=== PATIENT | female | born 1940 | race Caucasian/White ===

== ENCOUNTER 2017-10-18 09:12 | Emergency (ER) | payer MEDICARE, OTHER ==
[~2017-10-18] VITALS: Ht 160 cm; Wt 79.4 kg
[2017-10-18] MEDS ORDERED: HYDR-2758 PO (09:57)
[2017-10-18] MEDS ORDERED: CYCL5TAB PO (09:57)
--- NOTE | 2017-10-18 09:58 | PHYS DOC ---
Past History Past Medical History: Diabetes, Hypertension Past Surgical History: No Surgical History Alcohol Use: None Drug Use: None Adult General Chief Complaint Chief Complaint: BACK PAIN OR INJURY HPI HPI 87-year-old female with a history of high blood pressure high cholesterol and hypothyroidism presenting to the emergency department today with right lower back pain and hip pain. She reports having a history of trochanteric bursitis and has been undergoing injections of corticosteroids. She recently has been having right trochanteric bursitis for which she went to the doctor who placed a steroid injection a few days ago. Since this event, she has had worsening low back pain and right-sided buttocks pain. She denies any rashes fevers or warmth in the area of injection. Location right hip. Right low back. Duration intermittent. Worse with walking. No alleviating or exacerbating factors. The patient denies having perineal paresthesias urinary retention or weakness or numbness in her lower extremities. Review of systems is negative for numbness tingling fevers chills trauma to the hip back or otherwise. All other review of systems is negative unless otherwise noted in history of present illness. ED course: 77-year-old female presenting to the emergency department today with right-sided low back pain and hip pain. She denies any trauma. Otherwise her vital signs upon triage show her to be afebrile with a normal heart rate. On examination the patient has pain along the paraspinal musculature of low back without any step-offs abrasions ecchymosis or lacerations. No fluctuance of the low back. Nontender midline. No erythema the right hip. Not warm to touch. No pain with passive range of motion of the hip. She does have muscle spasms through back as I rotate her hip. Negative straight leg test. Palpable pulse distally with 2 second cap refill with normal sensory and motor function of the right lower foot. The patient was given intramuscular hydromorphone and oral cyclobenzaprine. On reexamination she is feeling better. She was subsequent discharged home with oral ibuprofen and low-dose short-term opioids. I also referred her to physical therapist for rehabilitation. The patient was then discharged home in stable condition to follow up with their primary care physician over the next 2-3 days. They were to return if their symptoms worsened or if they were concerned for any reason. [id number] discharge instructions and return precautions were given. Patient's questions were answered to their satisfaction. Patient is comfortable plan. Review of Systems Review of Systems SEE ABOVE. Current Medications Current Medications Current Medications Medications (Trade) Dose Ordered Sig/Omid Start Time Stop Time Status Last Admin Dose Admin Cyclobenzaprine HCl (Flexeril) 10 mg 1X ONCE 10/18/17 09:45 10/18/17 09:46 UNV Hydromorphone HCl (Dilaudid) 0.5 mg 1X ONCE 10/18/17 09:45 10/18/17 09:46 UNV Allergies Allergies Allergies Coded Allergies Type Severity Reaction Last Updated Verified No Known Drug Allergies 12/18/16 No Physical Exam Physical Exam SEE ABOVE Constitutional: Well developed, well nourished, no acute distress, non-toxic appearance. [] HENT: Normocephalic, atraumatic, bilateral external ears normal, oropharynx moist, no oral exudates, nose normal. [] Eyes: PERRLA, EOMI, conjunctiva normal, no discharge. [] Neck: Normal range of motion, no tenderness, supple, no stridor. [] Cardiovascular:Heart rate regular rhythm, no murmur [] Lungs & Thorax: Bilateral breath sounds clear to auscultation [] Abdomen: Bowel sounds normal, soft, no tenderness, no masses, no pulsatile masses. [] Skin: Warm, dry, no erythema, no rash. [] Back: SEE ABOVE Extremities: SEE ABOVE Neurologic: Alert and oriented X 3, normal motor function, normal sensory function, no focal deficits noted. [] Psychologic: Affect normal, judgement normal, mood normal. [] Current Patient Data Vital Signs Vital Signs Date Time Temp Pulse Resp B/P (MAP) Pulse Ox O2 Delivery O2 Flow Rate FiO2 10/18/17 09:12 98.6 92 20 97 Room Air EKG EKG [] Radiology/Procedures Radiology/Procedures [] Course & Med Decision Making Course & Med Decision Making Pertinent Labs and Imaging studies reviewed. (See chart for details) [] Dragon Disclaimer Dragon Disclaimer This electronic medical record was generated, in whole or in part, using a voice recognition dictation system. Departure Departure: Impression: Primary Impression: Low back pain Disposition: 01 HOME, SELF-CARE Condition: STABLE Referrals: SAYDA WILLIAMSON MD (PCP) Patient Instructions: Back Exercises, [id number], Back Pain, Adult, Easy-to- Read Additional Instructions: Thank you for allowing us to participate in your care today. Followup with your primary care physician in 3 days if your symptoms do not improve. Call your Primary Doctor tomorrow and inform them of your visit today. If you do not have a primary care provider you can ask for a list of our primary care providers. Return to the emergency department you have any new or concerning findings. This should be evaluated by the primary care physician and any necessary consulting services for continued management within a few days after discharge. Return to emergency room if you have any new or concerning symptoms including but not limited to fever, chills, nausea, vomiting, intractable pain, any new rashes, chest pain, shortness of air, uncontrolled bleeding, difficulty breathing, and/or vision loss. You may have been prescribed medication that can change in your level of thinking and ability to operate machinery. These medications include hydrocodone and Ativan. Also, Benadryl has been known to do this as well. Be sure to check with your pharmacist and ask if the medications you've prescribed can affect your level of consciousness. I recommend not operating heavy machinery or driving while on medication such as these. Scripts Hydrocodone Bit/Acetaminophen (HYDROCODONE-APAP 5-325 ) 1 Each Tablet 1 TAB PO PRN Q6HRS Y for PAIN, #10 TAB 0 Refills Prov: AXEL PERSAUD MD 10/18/17 Cyclobenzaprine Hcl (CYCLOBENZAPRINE HCL) 5 Mg Tablet 1 TAB PO QHS, #7 TAB Prov: AXEL PERSAUD MD 10/18/17 AXEL PERSAUD MD Oct 18, 2017 09:57
[2017-10-18] MEDS ORDERED: CYCLOBENZAPRINE 10 MG TABLET. PO ONE (10:15)
[2017-10-18] MEDS ORDERED: HYDROmorphone PF 1 MG/ML DISP.SYRIN IM ONE (10:15)
[2017-10-18 10:43] VITALS: BP 139/57
== END 2017-10-18 10:44 | disposition home or self-care (01) ==
LOC: ER 09:12
DX: M54.5 Low back pain (principal); M25.551 Pain in right hip; E11.9 Type 2 diabetes mellitus without complications; E03.9 Hypothyroidism, unspecified; E78.00 Pure hypercholesterolemia, unspecified
CPT/HCPCS: 96372; 99283; J1170

== ENCOUNTER 2017-11-01 21:44 | Emergency (ER) | payer MEDICARE, OTHER ==
[~2017-11-01] VITALS: Ht 160 cm; Wt 79.4 kg
[~2017-11-01 21:44] MED LIST: CYCL5TAB PO; HYDR-2758 PO
[2017-11-01] MEDS ORDERED: MORPHINE SULFATE 4 MG/ML DISP.SYRIN. IV/SQ PRN (22:45)
[2017-11-01 22:56] LABS: BASO % 0 % (0-3); EOS % 0 % (0-3); HEMATOCRIT 36.4 % (36.0-47.0); HEMOGLOBIN 12.2 g/dL (12.0-15.5); LYMPH # 0.5 x10^3/uL (1.0-4.8); LYMPH % 4 % (24-48); MEAN CORPUSCULAR HEMOGLOBIN 30 pg (25-35); MEAN CORPUSCULAR HGB CONC 34 g/dL (31-37); MEAN CORPUSCULAR VOLUME 89 fL (79-100); MONO # 0.8 x10^3/uL (0.0-1.1); MONO % 7 % (0-9); NEUT # 9.9 x10^3uL (1.8-7.7); NEUT % 88 % (31-73); PLATELET COUNT 304 x10^3/uL (140-400); RED BLOOD COUNT 4.08 x10^6/uL (3.50-5.40); RED CELL DISTRIBUTION WIDTH 13.8 % (11.5-14.5); WHITE BLOOD COUNT 11.3 x10^3/uL (4.0-11.0)
[2017-11-01] MEDS ORDERED: ONDANSETRON PF 4 MG/2 ML VIAL. IV ONE (23:00)
[2017-11-01] MEDS ORDERED: IV NORMAL SALINE 1,000ML 1,000 ML IV SCH (23:00)
[2017-11-01 23:17] LABS: CALCIUM 9.5 mg/dL (8.5-10.1); GFR 10.9; POTASSIUM 3.7 mmol/L (3.5-5.1); TOTAL BILIRUBIN 0.3 mg/dL (0.2-1.0); TOTAL PROTEIN 8.2 g/dL (6.4-8.2)
--- NOTE | 2017-11-02 00:11 | EKG ---
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
[2017-11-02] MEDS ORDERED: IV NORMAL SALINE 1,000ML 1,000 ML IV SCH (00:30)
--- NOTE | 2017-11-02 00:39 | RAD ---
INDICATION: Right flank pain, abd pain, nausea and vomiting. No prior exams for comparison COMPARISON: None. TECHNIQUE: Axial CT images obtained through the abdomen and pelvis without contrast. Limited assessment of solid organ structures and vasculature secondary to lack of intravenous contrast. One or more of the following individualized dose reduction techniques were utilized for this examination: 1. Automated exposure control; 2. Adjustment of the mA and/or kV according to patient size; 3. Use of iterative reconstruction technique. FINDINGS: Calcified granuloma right lower lung. Coronary artery calcific atherosclerosis. Small hiatal hernia is suspected. Trace pericardial fluid. Moderate calcific atherosclerosis. Moderate fat-containing left inguinal hernia. No intrahepatic bile duct dilation. Suspected high density foci within the gallbladder. No peripancreatic edema. Splenic calcified granulomas. No left-sided hydronephrosis. Urinary bladder is partially distended. Calcifications the bilateral kidneys. Could be from nonobstructive stones. Moderate amount stool is seen in the rectal region. Colonic diverticulosis. No definite periappendiceal inflammation. There is some high density material within the appendix. No dilated loops of bowel to suggest obstruction. Small fat-containing umbilical hernia. Cortical step-off is suspected at the sacrum bilaterally with mixed regions of sclerosis and lucency. Degenerative changes throughout spine. Lucency through the superior endplate of L5 posteriorly. IMPRESSION: Findings are concerning for sacral fracture bilaterally. There is also a subtle lucency through the superior endplate of L5. This one is more questionable but additional nondisplaced fracture is possible if there is pain in the area. The appendix does not appear grossly inflamed but there is some high density material within the lumen which could be from high density stool or appendicolith. No evidence of hydronephrosis or bowel obstruction. Small amount of high density material seen within the gallbladder which could be from sludge or stones. Gallbladder is somewhat distended and if more clarification is desired ultrasound could further evaluate Electronically signed by: Venancio Shay MD (11/02/2017 12:36 AM) [facility]
--- NOTE | 2017-11-02 00:46 | PHYS DOC ---
General Chief Complaint: ABDOMINAL PAIN Stated Complaint: VOMITING,BACK PROBLEM,CONSTIPATION X8DYS Time Seen by MD: 22:39 Source: patient, family Exam Limitations: clinical condition Problems: History of Present Illness Initial Comments Patient is a 77-year-old female brought to the ED by her daughter with vomiting , right lower quadrant abdominal pain, back pain, constipation and confusion. Patient was seen here October 18 complaining of right sided low back and right hip pain presumably from prior diagnosis of trochanteric bursitis. She had some steroid injections which have helped previously however was having what she thought was an exacerbation of pain. Her physical exam was consistent with her reported history and she was discharged home with physical therapy referral and muscle relaxants after symptomatic control was achieved in the emergency department. There was no report of a fall and the patient still denies any recent falls or other trauma, she states she did have a "bad fall" forward to her hands and right knee last December. Patient saw her primary care physician Dr. Williamson on October 21, at that time she was prescribed Lortab and has been taking that since to control her symptoms. She's not been taking any stool softeners or increasing her fluids and has not had a bowel movement for the past 8 days. She hasn't been taking much in by mouth and her daughter states that she's lost about 10 pounds during this time. She's had progressive difficulty with ambulation due to discomfort. Today her daughter visited her and found her to be confused and "not acting right" and upon finding out the patient has been vomiting today decided to bring her in for further evaluation. In the emergency department the patient complains of vomiting, right lower quadrant abdominal and right sided back pain, she has a tremor which family states is new and her appearance is profoundly dehydrated and pale. She began vomiting earlier today is very weak and has great difficulty moving with weakness and pain. She's also had decreased appetite but denies any fever chills or diaphoresis, she does complain that she just pretty much hurts all over. Patient lives alone and does not appear to be able to care for herself at home alone at this time. ED vitals: 98, 87, 20, 139/66, 94% room air Timing/Duration: other Severity: severe Modifying Factors: improves with medication, worse with movement Associated Symptoms: loss of appetite, malaise, nausea/vomiting, weakness, other Allergies: Coded Allergies: No Known Drug Allergies (Unverified , 12/18/16) Past Medical History Medical History: other (diabetes, hypertension, hypothyroidism, chronic trochanteric bursitis) Surgical History: other (she reportedly had a heart catheterization 3 and half years ago which showed some disease no treatment was indicated at that time) Social History Smoker: non-smoker Alcohol: none Drugs: none Review of Systems Constitutional: denies chills, denies diaphoresis, denies fever, malaise, weakness Respiratory: denies cough, orthopnea, denies shortness of breath, denies wheezing Cardiovascular: denies chest pain, denies palpitations, denies syncope Gastrointestinal: denies abdominal pain, constipation, denies diarrhea, nausea , vomiting Genitourinary: see HPI, denies dysuria, denies frequency, denies hematuria, other (decreased urination) Musculoskeletal: see HPI, denies neck pain Psychiatric/Neurological: see HPI, denies headache, denies numbness, denies paresthesia, denies pre-existing deficit, denies seizure, tremors, weakness Hematologic/Lymphatic: denies blood clots, denies easy bleeding, denies easy bruising Physical Exam General Appearance: moderate distress (profoundly dehydrated, weak, alert and oriented but confused at times) Eyes: bilateral eye normal inspection, bilateral eye PERRL, bilateral eye EOMI Ear, Nose, Throat: hearing grossly normal, normal ENT inspection, normal pharynx (very dry mucous membranes) Neck: non-tender, full range of motion, supple Respiratory: chest non-tender, no respiratory distress, other (course breath sounds bilaterally) Cardiovascular: normal peripheral pulses, regular rate, rhythm Gastrointestinal: soft (mild right lower quadrant tenderness without rebound guarding or palpable mass, bowel sounds diminished), no organomegaly Rectal: deferred Back: CVA tenderness (R), other (right sided lower lumbar tenderness as well as some lower midline tenderness) Extremities: pelvis stable, other (2+ nonpitting lower extremity edema bilaterally, range of motion not tested due to discomfort) Neurologic/Psychiatric: 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 Chest AP: Right lower lobe calcified nodule otherwise lung mccauley and cardiac silhouette appeared to be normal. Interpreted by me. Pertinent labs: WBC 11.3, d-dimer 4.49, BUNs 145, creatinine 4.0, glucose 174, amylase 155, lipase 680 PATIENT: GERMAIN QUINTANILLA ACCOUNT: [id number] : 1940 LOCATION: ER AGE: 77 SEX: F EXAM STATUS: REG ER ORD. PHYSICIAN: HEMAL LUGO DO REASON: R flank/abd pain, n/v PROCEDURE: CT ABDOMEN PELVIS WO CONTRAST INDICATION: Right flank pain, abd pain, nausea and vomiting. No prior exams for comparison COMPARISON: None. TECHNIQUE: Axial CT images obtained through the abdomen and pelvis without contrast. Limited assessment of solid organ structures and vasculature secondary to lack of intravenous contrast. One or more of the following individualized dose reduction techniques were utilized for this examination: 1. Automated exposure control; 2. Adjustment of the mA and/or kV according to patient size; 3. Use of iterative reconstruction technique. FINDINGS: Calcified granuloma right lower lung. Coronary artery calcific atherosclerosis. Small hiatal hernia is suspected. Trace pericardial fluid. Moderate calcific atherosclerosis. Moderate fat-containing left inguinal hernia. No intrahepatic bile duct dilation. Suspected high density foci within the gallbladder. No peripancreatic edema. Splenic calcified granulomas. No left-sided hydronephrosis. Urinary bladder is partially distended. Calcifications the bilateral kidneys. Could be from nonobstructive stones. Moderate amount stool is seen in the rectal region. Colonic diverticulosis. No definite periappendiceal inflammation. There is some high density material within the appendix. No dilated loops of bowel to suggest obstruction. Small fat-containing umbilical hernia. Cortical step-off is suspected at the sacrum bilaterally with mixed regions of sclerosis and lucency. Degenerative changes throughout spine. Lucency through the superior endplate of L5 posteriorly. IMPRESSION: Findings are concerning for sacral fracture bilaterally. There is also a subtle lucency through the superior endplate of L5. This one is more questionable but additional nondisplaced fracture is possible if there is pain in the area. The appendix does not appear grossly inflamed but there is some high density material within the lumen which could be from high density stool or appendicolith. No evidence of hydronephrosis or bowel obstruction. Small amount of high density material seen within the gallbladder which could be from sludge or stones. Gallbladder is somewhat distended and if more clarification is desired ultrasound could further evaluate Electronically signed by: Hank Shay MD (11/02/2017 12:36 AM) [facility] DICTATED AND SIGNED BY: HANK SHAY MD DATE: 11/02/1720 CC: SAYDA WILLIAMSON MD; HEMAL LUGO DO ~ Impressions: Bilateral sacral fractures L5 superior endplate fracture Gallbladder distention with sludge and elevated amylase and lipase Right lower quadrant pain with appendicolith and high density material within the appendix Opiate associated constipation Profound hypovolemia JUAN Patient will likely need orthopedics evaluation for fractures in the absence of trauma. Patient will also possibly need GI or general surgical evaluation of her gallbladder and appendix. As these resources are not available at [facility] the decision is made to transfer to [facility] for further evaluation and treatment. The patient and her family are agreeable and hospitalist has been paged. The patient's daughter who is an RN to a physician requested and was provided copies of labs and imaging studies. 0122: I discussed the patient with insect control inspector hospitalist at [facility] Dr. Zepeda who accepts MedSurg admission, requests that we continue IV fluids and give antibiotics. 0136: Patient tremor has nearly resolved with IV hydration, her color has improved as has her mentation. Currently her second liter IV bolus as running after which normal saline at 200 mL an hour will be initiated. Patient also received Rocephin and Zofran IV in the emergency department. Departure Time of Disposition: 01:45 Disposition: 02 XFER SHT-TRM HOSP Condition: STABLE Additional Instructions: EMS transfer to [facility] for MedSurg admission Dr. Zepeda is accepting physician. HEMAL LUGO DO Nov 02, 2017 00:46
[2017-11-02 01:01] LABS: BACTERIA,URINE 0 /HPF (0-FEW); BILIRUBIN,URINE NEG (NEG); CLARITY,URINE CLEAR; COLOR,URINE YELLOW; GLUCOSE,URINE NEG (NEG); NITRITE,URINE NEG (NEG); RBC,URINE RARE /HPF (0-2); SQUAMOUS EPITHELIAL CELL,UR FEW /LPF; UROBILINOGEN,URINE 0.2 mg/dL (0.2 mg/dL); WBC,URINE OCC /HPF (0-4)
[2017-11-02 01:08] VITALS: BP 128/54
[2017-11-02] MEDS ORDERED: cefTRIAXone SODIUM 1 GM VIAL IV ONE (01:31)
[2017-11-02] MEDS ORDERED: IV NORMAL SALINE 50ML 50 ML ONE (01:31)
--- NOTE | 2017-11-02 08:12 | RAD ---
AP chest. History: Dyspnea AP view was taken of the chest. There is a granuloma on the right. Lungs are clear. Heart is normal in size without heart failure. There is no effusion. Impression: 1. No acute chest disease.
== END 2017-11-02 02:23 | disposition short-term general hospital (02) ==
LOC: ER 21:44
DX: S32.19XA Other fracture of sacrum, initial encounter for closed fracture (principal); S32.058A Other fracture of fifth lumbar vertebra, initial encounter for closed fracture; K38.1 Appendicular concretions; N32.89 Other specified disorders of bladder; S37.002A Unspecified injury of left kidney, initial encounter; S37.001A Unspecified injury of right kidney, initial encounter; E86.1 Hypovolemia; K59.03 Drug induced constipation; I10 Essential (primary) hypertension; T40.605A Adverse effect of unspecified narcotics, initial encounter; R74.8 Abnormal levels of other serum enzymes; E03.9 Hypothyroidism, unspecified; E11.9 Type 2 diabetes mellitus without complications; X58.XXXA Exposure to other specified factors, initial encounter; Y93.89 Activity, other specified; Y99.8 Other external cause status; Y92.89 Other specified places as the place of occurrence of the external cause
CPT/HCPCS: 36415; 51702; 71010; 74176; 80053; 81001; 82150; 82550; 82947; 83605; 83690; 83880; 84484; 85025; 85379; 86140; 87040; 87086; 93005; 96361; 96374; 96375; 99285; J0696; J2270; J2405; J7030

== ENCOUNTER 2017-12-09 06:09 | Emergency (ER) | payer MEDICARE, OTHER ==
[~2017-12-09] VITALS: Ht 160 cm; Wt 73.5 kg
[2017-12-09 06:45] VITALS: BP 138/67
--- NOTE | 2017-12-09 07:13 | PHYS DOC ---
Past History Past Medical History: Diabetes, Hypertension Past Surgical History: No Surgical History Alcohol Use: None Drug Use: None Adult General Chief Complaint Chief Complaint: hives HPI HPI Patient is a 77 year old F who presents with hives on her lower extremity and right trunk that started last night. Joint states that she initially put heat on this rash which worsened her symptoms. She put cold compresses on to follow which seemed to improve her symptoms. She states that her symptoms are gradually improving. She denies shortness of breath. She denies any problems related to her airway. She has no other associated symptoms. She has no other exacerbating or alleviating factors. She has not taken new medications. She did have a respiratory infection that resolved approximately one week ago. Review of Systems Review of Systems Constitutional: Denies fever or chills [] Eyes: Denies change in visual acuity, redness, or eye pain [] HENT: Denies nasal congestion or sore throat [] Respiratory: Denies cough or shortness of breath [] Cardiovascular: No additional information not addressed in HPI [] GI: Denies abdominal pain, nausea, vomiting, bloody stools or diarrhea [] : Denies dysuria or hematuria [] Musculoskeletal: Denies back pain or joint pain [] Integument: Negative except history of present illness Neurologic: Denies headache, focal weakness or sensory changes [] Endocrine: Denies polyuria or polydipsia [] All other systems were reviewed and found to be within normal limits, except as documented in this note. Family History Family History No pertinent family medical history was reported Current Medications Current Medications Current medications reviewed and include quinapril Allergies Allergies Allergies Coded Allergies Type Severity Reaction Last Updated Verified No Known Drug Allergies 12/18/16 No Physical Exam Physical Exam Constitutional: Well developed, well nourished, no acute distress, non-toxic appearance. [] HENT: Normocephalic, atraumatic, Eyes: EOMI, conjunctiva normal, no discharge. [] Neck: Normal range of motion, no tenderness, supple, no stridor. [] Cardiovascular:Heart rate regular rhythm, no murmur [] Lungs & Thorax: Bilateral breath sounds clear to auscultation [] Abdomen: Bowel sounds normal, soft, no tenderness, no masses, no pulsatile masses. [] Skin: Sparse light-colored minimally raised Urticaria noted on the extremities bilaterally as well as the right flank Back: No tenderness, no CVA tenderness. [] Extremities: No tenderness, no cyanosis, no clubbing, ROM intact, no edema. [] Neurologic: Alert and oriented X 3, normal motor function, normal sensory function, no focal deficits noted. [] Psychologic: Affect normal, judgement normal, mood normal. [] Current Patient Data Vital Signs Normal vital signs. Please review nursing documentation for specifics EKG EKG [] Radiology/Procedures Radiology/Procedures [] Course & Med Decision Making Course & Med Decision Making Pertinent Labs and Imaging studies reviewed. (See chart for details) Her symptoms were resolving prior to any intervention. She was given Benadryl as requested to manage her symptoms. These hives may be related to a viral infection versus side effect of quinapril Dragon Disclaimer Dragon Disclaimer This electronic medical record was generated, in whole or in part, using a voice recognition dictation system. Departure Departure: Impression: Primary Impression: Hives Disposition: 01 HOME, SELF-CARE Condition: STABLE Referrals: SAYDA WILLIAMSON MD (PCP) Patient Instructions: Hives Additional Instructions: [place] and was seen in the emergency department for rash. No emergency medical condition was found on history or physical exam. Her symptoms most consistent with hives. These hives may be related to a viral infection versus adverse effects of quinapril. She was advised not to take her quinapril until she talks with her doctor tomorrow. She is advised follow-up with her doctor in the next 1 -2 days. She is also advised to return to the emergency room if she develops new or worsening symptoms. TRISTA LOWERY MD Dec 09, 2017 07:13
[2017-12-09] MEDS ORDERED: diphenhydrAMINE HCL 25 MG CAPSULE PO ONE (07:30)
[2017-12-09] MEDS ORDERED: QUIN20TA17 PO (08:32)
[2017-12-09] MEDS ORDERED: PIOG1TAB24 PO (08:32)
[2017-12-09] MEDS ORDERED: MULT-650 PO (08:32)
[2017-12-09] MEDS ORDERED: LEVO88TA4 PO (08:32)
[2017-12-09] MEDS ORDERED: ASPI-612 PO (08:32)
[2017-12-09] MEDS ORDERED: ATOR40TA59 PO (08:32)
== END 2017-12-09 08:30 | disposition home or self-care (01) ==
LOC: ER 06:09
DX: L50.9 Urticaria, unspecified (principal); I10 Essential (primary) hypertension; E11.9 Type 2 diabetes mellitus without complications
CPT/HCPCS: 99284; Q0163